=== PATIENT | female | born 1970 | race Asian ===

== ENCOUNTER 2020-02-28 22:17 | Inpatient (IN) | payer OTHER ==
[~2020-02-28] VITALS: Ht 152.4 cm; Wt 44.9 kg
[2020-02-28] MEDS ORDERED: NITROGLYCERIN 0.4 MG/TAB BOTTLE SL ONE ×2 (22:30→23:30)
[2020-02-28] MEDS ORDERED: ASPIRIN 325 MG TABLET PO ONE (22:30)
--- NOTE | 2020-02-28 22:32 | NUR ---
PT CAME TO THE ER C/O MIDSTERNAL SQUEEZING AND INTERMITTENT CHEST PAIN RADIATING TO THE L SIDE FOR A FEW DAYS X WORSE TODAY. PT STATES WALKING RELIEVES THE PAIN AND LYING DOWN MAKES IT WORSE. PT DENIES ANY SOB, N/V AND DIZZINESS. PT CONNECTED TO THE LITERARY AGENT AND POX.
[2020-02-28] MEDS ORDERED: NITROGLYCERIN 0.4 MG/TAB BOTTLE ONE (22:35)
[2020-02-28] MEDS ORDERED: ASPIRIN 325 MG TABLET ONE (22:35)
--- NOTE | 2020-02-28 22:44 | NUR ---
2ND NITRO TAB GIVEN 10/23 BP 133/89
--- NOTE | 2020-02-28 22:45 | NUR ---
BLOOD COLLECTED AND SENT TO LAB Addendum: 02/28/20 at 2245 by ELEONORA COVID SWAB COLLECTED AND SENT TO LAB
--- NOTE | 2020-02-28 22:49 | NUR ---
3RD NITRO TAB GIVEN BP 123/85 PAIN 2
[2020-02-28 22:55] LABS: BASOPHILS # (AUTO) 0.1 /CMM (0.0-0.2); BASOPHILS % (AUTO) 0.7 % (0.0-2.0); EOSINOPHILS % (AUTO) 17.2 % (0.0-6.0); HEMATOCRIT 40 % (33-45); HEMOGLOBIN 13.3 g/dL (11.5-14.8); LYMPHOCYTES # (AUTO) 2.9 /CMM (0.8-4.8); LYMPHOCYTES % (AUTO) 38.6 % (20.0-44.0); MEAN CORPUSCULAR HGB CONC 33 g/dl (31.0-36.0); MEAN CORPUSCULAR VOLUME 93 fL (82-100); MONOCYTES # (AUTO) 0.6 /CMM (0.1-1.30); MONOCYTES % (AUTO) 8.3 % (2.0-12.0); NEUTROPHILS # (AUTO) 2.6 /CMM (1.8-8.9); NEUTROPHILS % (AUTO) 35.2 % (43.0-81.0); PLATELET COUNT (AUTO) 365 /CMM (150-450); RED BLOOD CELL COUNT(AUTO) 4.33 MIL/uL (4.0-5.2); WHITE BLOOD COUNT (AUTO) 7.4 K/uL (4.3-11.0)
--- NOTE | 2020-02-28 22:55 | NUR ---
PT DENIES ANY CHEST PAIN AT THIS TIME. RELIEVED BY NITRO
[2020-02-28 23:03] LABS: CALCIUM, SERUM 9.6 mg/dL (8.5-10.1); CARBON DIOXIDE 26 mmol/L (21-32); CHLORIDE 102 mmol/L (98-107); CREATININE 0.7 mg/dL (0.6-1.3); GLUCOSE 91 mg/dL (74-106); POTASSIUM 3.8 mmol/L (3.5-5.1); SODIUM SERUM 138 mmol/L (136-145); UREA NITROGEN, BLOOD 11 mg/dL (7-18)
[2020-02-29] MEDS ORDERED: MAGNESIUM HYDROXIDE 30 ML UDC PO PRN
[2020-02-29] MEDS ORDERED: MORPHINE SULFATE INJ 2 MG/ML DISP.SYRIN IV PRN
[2020-02-29] MEDS ORDERED: ACETAMINOPHEN 325 MG TABLET PO PRN
[2020-02-29] MEDS ORDERED: HYDROCODONE/APAP 5/325MG TABLET PO PRN
[2020-02-29] MEDS ORDERED: MAG HYDROX/AL HYDROX/SIMETH 30 ML UDC PO PRN
[2020-02-29] MEDS ORDERED: ONDANSETRON HCL/PF 4 MG/2 ML VIAL IVP PRN
--- NOTE | 2020-02-29 00:42 | NUR ---
NURSE WILL CALL BACK
--- NOTE | 2020-02-29 00:57 | NUR ---
REPORT GIVEN TO GLADYS NOVA FOR JANINE
[2020-02-29] MEDS ORDERED: BUDE10.2 INH (01:01)
[2020-02-29] MEDS ORDERED: ONDANSETRON HCL/PF 4 MG/2 ML VIAL IV ONE (01:30)
[2020-02-29] MEDS ORDERED: IV NS 0.9% 1,000 ML BAG IV ONE (01:30)
[2020-02-29 02:00] VITALS: BP 102/62
--- NOTE | 2020-02-29 02:30 | NUR ---
SPORTS MARKETING SPECIALIST RECEIVE PT FROM [employer] VIA RACHEAL PT A/O X 4, NO CHEST PAIN AT THIS TIME. NO PAIN, IN NO APPARENT DISTRESS, STABLE, HEAD TO TOE ASSESSMENT IS DONE, SKIN IS INTACT. KEPT CLEAN, DRY AND COMFORTABLE. SAFETY MEASURES AT ALL TIMES. WILL ENDORSE TO NEXT SHIFT. Addendum: 02/29/20 at 0330 by SCOTT OLIVERA RN ADMIT TO TELE SINUS RHYTHM 94'S IN TELE MONITOR
--- NOTE | 2020-02-29 03:14 | NUR ---
AIRCRAFT STRUCTURAL REPAIRER PATIENT REFUSED NITRO PT VERBALIZED" I DONT NEED IT" DESPITE EXPLAINING RISKS AND BENEFITS OFFERED 3 TIMES PT REFUSED
[2020-02-29 04:00] VITALS: BP 104/66
--- NOTE | 2020-02-29 05:47 | NUR ---
[place] MAKER ASLEEP AND EASILY AWAKEN, 2LPM VIA NC 02 SAT 98%. SR 82'S HR IN CARDIAC MONITORING. STABLE AND IN NO APPARENT DISTRESS, NO CHEST PAIN, NEEDS ATTENDED AND ANTICIPATED, KEPT CLEAN, DRY AND COMFORTABLE AT ALL TIMES. SAFETY MEASURES IN PLACE. WILL ENDORSE TO NEXT SHIFT.
[2020-02-29 06:49] LABS: HEMATOCRIT 40 % (33-45); HEMOGLOBIN 12.7 g/dL (11.5-14.8); LYMPHOCYTES # (AUTO) 1.1 /CMM (0.8-4.8); LYMPHOCYTES % (AUTO) 9.3 % (20.0-44.0); MEAN CORPUSCULAR HGB CONC 32 g/dl (31.0-36.0); MEAN CORPUSCULAR VOLUME 93 fL (82-100); MONOCYTES % (AUTO) 8.1 % (2.0-12.0); NEUTROPHILS # (AUTO) 9.6 /CMM (1.8-8.9); NEUTROPHILS % (AUTO) 80.6 % (43.0-81.0); PLATELET COUNT (AUTO) 326 /CMM (150-450); RED BLOOD CELL COUNT(AUTO) 4.24 MIL/uL (4.0-5.2)
[2020-02-29 07:09] LABS: THYROID STIMULATING HORMONE 1.156 uIU/mL (0.358-3.74)
--- NOTE | 2020-02-29 07:30 | NUR ---
RN Opening Note Received patient in bed, AO x 4, able to responds all stimuli. Pt denies chest pain or any discomfort. Respiratory even and unlabored on room air 96%, skin is warm to touch, keep clean/dry, intact IV site with SL. Keep low position of the bed with elevated HOB for ensure airway and bed in locked. Call light within reach, will continue to monitor.
[2020-02-29 07:31] LABS: BILIRUBIN,DIRECT 0.1 mg/dL (0.0-0.2); BILIRUBIN,TOTAL 0.3 mg/dL (0.2-1.0); CREATININE 0.8 mg/dL (0.6-1.3); MAGNESIUM 1.9 mg/dL (1.8-2.4); PHOSPHORUS 3.4 mg/dL (2.5-4.9); POTASSIUM 4.1 mmol/L (3.5-5.1); TOTAL PROTEIN, SERUM 7.6 g/dL (6.4-8.2)
[2020-02-29 08:00] VITALS: BP 101/63
[2020-02-29] MEDS: ASPIRIN 81 MG TAB.CHEW PO SCH (08:23)
--- NOTE | 2020-02-29 09:34 | NUR ---
Urine sample collected and put it in refrigerator, lab made aware.
--- NOTE | 2020-02-29 11:12 | NUR ---
Obtained consent sign for CTA.
[2020-02-29 11:38] LABS: APPEARANCE,URINE CLEAR (CLEAR); BILIRUBIN,URINE NEGATIVE (NEGATIVE); BLOOD, URINE NEGATIVE Ery/uL (NEGATIVE); COLOR,URINE YELLOW (YELLOW); KETONES,URINE NEGATIVE (NEGATIVE); LEUKOCYTE ESTERASE ,URINE NEGATIVE (NEGATIVE); NITRITE, URINE NEGATIVE (NEGATIVE); PROTEIN,URINE NEGATIVE (NEGATIVE); UGLUCOSE NEGATIVE (NEGATIVE); UROBILINOGEN,URINE 0.2 EU/dL (0.2)
[2020-02-29 12:00] VITALS: BP 104/69
[2020-02-29 16:00] VITALS: BP 124/78
--- NOTE | 2020-02-29 17:56 | NUR ---
RN Closing Note Patient in bed, denies chest pain at this time. Respiratory even and unlabored on room air, no distress observed. Skin is warm to touch, kept clean/dry, intact IV site with SL. Keep bed in locked with HOB for ensure airway and aspiration precaution. Call light within reach, all needs met. Will endorse mini shifter.
--- NOTE | 2020-02-29 19:25 | NUR ---
PLANER OPERATOR / GRADER OPENING NOTES RECEIVED PATIENT FROM MORNING SHIFT, ALERT AND ORIENTED X 4. VERBALLY RESPONSIVE AND ABLE TO FOLLOW DIRECTIONS. BREATHING REGULAR AND UNLABORED ON ROOM AIR. LEFT WRIST G18 IV LINE INTACT AND PATENT, FLUSHING WELL WITH NO BLEEDING OR S/S OF INFILTRATION NOTED. ON CARDIAC MONITORING WITH NSR AT 89bpm. DENIES SUICIDAL IDEATION OR PAIN/DISCOMFORT AT THIS TIME. DVT PUMP ON. BED LOW AND LOCKED ON SEMI FOWLERS POSITION. CALL LIGHT IN REACH. WILL CONTINUE TO MONITOR.
[2020-02-29 20:00] VITALS: BP_SYST 109; BP_SYST 153; BP_DIAS 71; BP_DIAS 79
[2020-03-01] VITALS: BP_SYST 133; BP_SYST 136; BP_DIAS 87
--- NOTE | 2020-03-01 | NUR ---
EXECUTIVE MANAGER NOTES COMPLAINED OF 5/10 SHARP CHEST PAIN, NORCO 5/325 GIVEN BY MOUTH. PUT ON 2L/MIN OXYGEN VIA NASAL CANNULA. NON-PHARMACOLOGICAL INTERVENTIONS PROVIDED. WILL CONTINUE TO MONITOR.
--- NOTE | 2020-03-01 02:05 | NUR ---
WINDOW SHADE CUTTER AND MOUNTER NOTES COMPLAINED OF 8/10 SHARP CHEST PAIN, MORPHINE 1MG GIVEN IVP. NON-PHARMACOLOGICAL INTERVENTIONS PROVIDED. WILL CONTINUE TO MONITOR.
--- NOTE | 2020-03-01 03:45 | NUR ---
RECREATION FACILITY ATTENDANT NOTES PATIENT STILL COMPLAINS OF CHEST PAIN PER HER THE PAIN SI LONGER AND RADIATES FROM HER CHEST GOING TO THE BACK. RADHA PICKERING NOTIFIED WITH ORDERS TO GIVE NITROGLYCERINE SL 0.4MG EVERY 5MINS X 3 DOSES PRN AND IF PATIENT IS FEELING ANXIOUS GIVEN ATIVAN 1MG X 1 PRN.
[2020-03-01 04:00] VITALS: BP 121/87
[2020-03-01] MEDS ORDERED: NITROGLYCERIN 0.4 MG/TAB BOTTLE SL PRN (04:00)
--- NOTE | 2020-03-01 04:15 | NUR ---
RELOCATION SPECIALIST NOTES NITROGLYCERINE 0.4MG SL GIVEN BP 121/87; PATIENT VERBALIZED DECREASED IN CHEST PAIN AFTER 5MINS. ASKED IF SHE NEEDS ANOTHER DOSE BUT REFUSED SAID THAT IT MIGHT LOWER HER BLOOD PRESSURE AGAIN JUST LIKE THE OTHER DAY. WILL CLOSELY MONITOR.
[2020-03-01 05:06] LABS: BASOPHILS % (AUTO) 0.4 % (0.0-2.0); EOSINOPHILS % (AUTO) 19.5 % (0.0-6.0); HEMATOCRIT 36 % (33-45); HEMOGLOBIN 11.9 g/dL (11.5-14.8); LYMPHOCYTES # (AUTO) 1.8 /CMM (0.8-4.8); LYMPHOCYTES % (AUTO) 29.5 % (20.0-44.0); MEAN CORPUSCULAR HGB CONC 33 g/dl (31.0-36.0); MEAN CORPUSCULAR VOLUME 93 fL (82-100); MONOCYTES # (AUTO) 0.3 /CMM (0.1-1.30); MONOCYTES % (AUTO) 5.4 % (2.0-12.0); NEUTROPHILS # (AUTO) 2.8 /CMM (1.8-8.9); NEUTROPHILS % (AUTO) 45.2 % (43.0-81.0); PLATELET COUNT (AUTO) 303 /CMM (150-450); RED BLOOD CELL COUNT(AUTO) 3.89 MIL/uL (4.0-5.2); WHITE BLOOD COUNT (AUTO) 6.2 K/uL (4.3-11.0)
--- NOTE | 2020-03-01 06:25 | NUR ---
C.O.D. AUDIT CLERK CLOSING NOTES PATIENT IN BED ALERT AND ORIENTED X 4. AFEBRILE WITH NO S/S OF DISTRESS OBSERVED. LEFT WRIST G18 IV LINE PATENT AND FLUSHING WELL. MAINTAINED ON CARDIAC MONITORING WITH NSR AT 77bpm. NO COMPLAINTS OF PAIN/DISCOMFORT REPORTED AT THIS TIME. BED LOW AND LOCKED ON SEMI FOWLERS POSITION. CALL LIGHT IN REACH. WILL ENDORSE TO MORNING SHIFT FOR JANINE.
[2020-03-01 07:16] LABS: CALCIUM, SERUM 8.5 mg/dL (8.5-10.1); CREATININE 0.8 mg/dL (0.6-1.3); POTASSIUM 3.4 mmol/L (3.5-5.1)
--- NOTE | 2020-03-01 07:27 | NUR ---
ORTHOPEDIC SHOE FITTER NOTES PATIENT RECEIVED IN BED SLEEPING, EASILY AWAKEN BY NAME. ALERT AND ORIENTED X 4. ON NASAL CANNULA 2L, WITH NO SIGNS OF RESPIRATORY DISTRESS AT THIS TIME WITH NON-LABORED BREATHING. ON MINUTE CLERK FOR BASIC TRAFFIC, SINUS RHYTHM 75. IV ACCESS INTACT AND PATENT. PATIENT PRESENTS WITH NO PAIN OR DISCOMFORT AT THIS TIME. SAFETY PRECAUTIONS IN PLACE WITH BED LOCKED, BED IN THE LOWEST POSITION, BILATERAL SIDE RAILS UP, AND CALL LIGHT WITHIN EASY REACH OF THE PATIENT. WILL CONTINUE TO MONITOR PATIENT.
[2020-03-01 08:00] VITALS: BP 116/73
[2020-03-01] MEDS ORDERED: CT SWABBABLE VALVE TRANS SET 1 EA INFUS.SET MC ONE (08:38)
[2020-03-01] MEDS ORDERED: IOHEXOL-350 100 ML VIAL IV ONE (08:38)
[2020-03-01] MEDS ORDERED: IV NS 0.9% 250 ML IV ONE (08:38)
[2020-03-01] MEDS ORDERED: METOPROLOL TARTRATE INJ 5 MG/5 ML AMPUL ONE ×3 (08:57→09:45)
[2020-03-01] MEDS ORDERED: NITROGLYCERIN 0.4 MG/TAB BOTTLE ONE (08:57)
[2020-03-01] MEDS ORDERED: NITROGLYCERIN 0.4 MG/TAB BOTTLE SL ONE (09:00)
[2020-03-01] MEDS: METOPROLOL TARTRATE INJ 5 MG/5 ML AMPUL IVP PRN ×8 (09:02→09:37)
--- NOTE | 2020-03-01 09:49 | NUR ---
RN NOTES; POST CTA: Patient completed CTA, able to tolerate well, denies pain or discomfort at this time. Transferred back to patient room report given to Kristie GRAHAM
[2020-03-01] MEDS: ASPIRIN 81 MG TAB.CHEW PO SCH (09:54)
[2020-03-01] MEDS ORDERED: POTASSIUM CHLORIDE 20 MEQ TAB.PRT.SR PO SCH (11:00)
[2020-03-01] MEDS ORDERED: Budesonide/Formoterol Fumarate (Symbicort 160-4.5 Mcg INH SCH (17:00)
[2020-03-01] MEDS: METFORMIN 500 MG TABLET PO SCH (17:00)
--- NOTE | 2020-03-01 17:00 | NUR ---
MS RN NOTES METFORMIN PO MEDICATION NOT ADMINISTERED DUE TO PATIENT RECENT CT-ANGIOGRAM OF THE HEART;03/01/2020. CHARGE NURSE MADE AWARE. WILL CONTINUE TO MONITOR PATIENT.
--- NOTE | 2020-03-01 18:43 | NUR ---
MS RN NOTES PATIENT IN BED ALERT AND ORIENTED X 4. ON ROOM AIR, WITH NO SIGNS OF RESPIRATORY DISTRESS AT THIS TIME, WITH EVEN NON-LABORED BREATHING. PATIENT SKIN KEPT CLEAN, WARM AND DRY TO TOUCH. IV ACCESS REMAINS INTACT AND PATENT. PATIENT PRESENTS WITH NO PAIN OR DISCOMFORT AT THIS TIME. SAFETY PRECAUTIONS IMPLEMENTED WITH BED LOCKED, BED IN THE LOWEST POSITION, BILATERAL SIDE RAILS UP, AND CALL LIGHT WITHIN EASY REACH OF THE PATIENT. WILL ENDORSE PLAN OF CARE TO UPCOMING NURSE.
[2020-03-01 20:15] VITALS: BP 123/82
--- NOTE | 2020-03-01 21:00 | NUR ---
MS RN OPENING NOTES PATIENT RESTING IN BED A/O X 4. STABLE ON RA WITH BREATHING EVEN AND UNLABORED, NO SOB NOTED. NO SIGNS OF ACUTE DISTRESS. NO COMPLAINTS OF PAIN OR DISCOMFORT AT THE MOMENT. IV LOCATED ON L WRIST #18 SL. SAFETY PRECAUTIONS IN PLACE WITH BED IN LOWEST POSITION, CALL LIGHT WITHIN REACH, BREAKS ON, SIDE RAILS UP. WILL CONTINUE TO MONITOR THROUGHOUT THE NIGHT.
--- NOTE | 2020-03-02 06:45 | NUR ---
MS RN CLOSING NOTES PATIENT IN BED A/O X 4. STABLE ON RA WITH BREATHING EVEN AND UNLABORED, NO SOB NOTED. NO SIGNS OF ACUTE DISTRESS. NO COMPLAINTS OF PAIN OR DISCOMFORT AT THE MOMENT. IV LOCATED ON L WRIST #18 SL. SAFETY PRECAUTIONS IN PLACE WITH BED IN LOWEST POSITION, CALL LIGHT WITHIN REACH, BREAKS ON, SIDE RAILS UP. ALL NEEDS ATTENDED TO. WILL ENDORSE TO ONCOMING SHIFT ABOUT JANINE.
[2020-03-02] MEDS ORDERED: ASPI-1169 PO (07:38)
[2020-03-02] MEDS ORDERED: ATOR10TA PO (07:39)
[2020-03-02 08:00] VITALS: BP 106/67
--- NOTE | 2020-03-02 08:00 | NUR ---
MS RN OPENING NOTES Received Patient resting in bed. A/O x 4. VS stable with no acute distress. Breathing even and unlabored on room air with no respiratory distress. Denies pain. No signs and symptoms of pain. 18g PIV on left wrist clean, intact, patent and flushing well. Safety precautions in place. Bed locked and set to lowest position with side rails x 2 up. All needs rendered at this time. Call light within reach. Will continue to monitor.
[2020-03-02 08:22] LABS: CALCIUM, SERUM 8.9 mg/dL (8.5-10.1); CREATININE 0.8 mg/dL (0.6-1.3); POTASSIUM 3.9 mmol/L (3.5-5.1)
[2020-03-02] MEDS: METFORMIN 500 MG TABLET PO SCH (08:51)
[2020-03-02] MEDS: ASPIRIN 81 MG TAB.CHEW PO SCH (08:51)
--- NOTE | 2020-03-02 17:10 | NUR ---
MS FIRE PILOT NOTES Patient discharged for home at this time. Patient in stable condition. VS stable with no acute distress. Breathing even and unlabored on room air with no respiratory distress. Denies pain. No signs and symptoms of pain. Skin intact. Removed intact PIV from left wrist. Patient tolerated well. Medication reconciliation and discharge orders reviewed and explained to Patient. Patient verbalized understanding. All belongings with Patient. Patient will follow up with PCP in 1 week. Escorted Patient to the Lobby for safety. Patient picked up by .
== END 2020-03-02 17:10 | disposition home or self-care (01) | DRG 313 ==
LOC: ER 22:17 → TELE 02-29 01:50 → MED 03-01 10:30 → MEDSG2 03-01 19:51
PROVIDERS: ADMIT Nurse Practitioner Acute Care; ATTEND Nurse Practitioner Acute Care
DX: R07.89 Other chest pain (principal); J45.909 Unspecified asthma, uncomplicated; D72.829 Elevated white blood cell count, unspecified; Z86.74 Personal history of sudden cardiac arrest; E11.9 Type 2 diabetes mellitus without complications; Z79.82 Long term (current) use of aspirin; Z95.0 Presence of cardiac pacemaker
CPT/HCPCS: 36415; 71045-TC; 75574; 80048-TC; 80053-TC; 80061-TC; 80076-TC; 81000-TC; 83735-TC; 84100-TC; 84443-TC; 84484-TC; 84703-TC; 85025-TC; 85610-TC; 87081-TC; 93307-TC; C9803-CS; G0378; J2270; J2405; J3490; J7030; J7050; Q9967